=== PATIENT | female | born 1945 | race Caucasian/White ===

== ENCOUNTER 2016-12-16 18:18 | Emergency (ER) | payer OTHER ==
[~2016-12-16] VITALS: Ht 175.3 cm; Wt 73.5 kg
[2016-12-16 18:25] VITALS: BP 197/79
[2016-12-16 19:06] LABS: ABSOLUTE BASOPHIL COUNT 0.1 /CUMM (0.0-0.2); ABSOLUTE EOSINOPHIL COUNT 0.2 /CUMM (0.0-0.7); ABSOLUTE GRANULOCYTE CT 4.6 /CUMM (1.4-6.5); ABSOLUTE LYMPH COUNT 2.5 /CUMM (1.2-3.4); ABSOLUTE MONOCYTE COUNT 0.8 /CUMM (0.10-0.60); BASOPHIL % 0.8 % (0.0-2.0); GRANULOCYTE % 56.5 % (42.2-75.2); HEMATOCRIT 33.8 % (37-47); MEAN CORPUSCULAR HGB 30.9 PG (27.0-31.0); MEAN CORPUSCULAR HGB CONC 32.7 G/DL (33.0-37.0); MEAN CORPUSCULAR VOLUME 94.3 FL (81.0-99.0); MEAN PLATELET VOLUME 8.7 FL (7.4-10.4); PLATELET COUNT 255 /CUMM (130-400); RBC DISTRIBUTION WIDTH 14.1 % (11.5-14.5); RED BLOOD CELL CT 3.58 /CUMM (4.20-5.40); WHITE BLOOD CELL COUNT 8.1 /CUMM (4.8-10.8)
--- NOTE | 2016-12-16 19:17 | CT SCAN REPORT ---
EXAMINATION: CT HEAD WITHOUT CONTRAST CLINICAL INFORMATION: Dizziness following fall. COMPARISON: None. TECHNIQUE: Contiguous axial imaging was performed from the skull base to vertex without intravenous administration of contrast. DLP: 614 mGy-cm FINDINGS: No acute intracranial abnormality. No acute intracranial hemorrhage, mass or mass effect or abnormal extra-axial fluid collections. The density within the dural venous sinuses is within normal limits. The ventricles are normal in size, without hydrocephalus. There are no focal areas of hypoattenuation within a vascular distribution to suggest acute transcortical ischemia. The basilar cisterns are patent. No acute calvarial abnormality is identified. Soft tissues appear unremarkable. The imaged paranasal sinuses and mastoid air cells are well aerated. IMPRESSION: No acute intracranial abnormality.
--- NOTE | 2016-12-16 20:04 | ED MVC/FALL/TRAUMA COMPLAINT ---
History of Present Illness General Chief Complaint: General Adult Stated Complaint: PT WAS SIB BY [facility], DIZZY, FALL Source: patient, old records Exam Limitations: no limitations Vital Signs & Intake/Output Vital Signs & Intake/Output Vital Signs Date Time Temp Pulse Resp B/P B/P Pulse O2 O2 Flow FiO2 Mean Ox Delivery Rate 12/16 1825 98.8 72 18 197/79 99 Room Air ED Intake and Output 12/17 0000 12/16 1200 Intake Total Output Total Balance Patient 162 lb Weight Weight Reported by Patient Measurement Method Allergies Coded Allergies: amoxicillin (From AUGMENTIN) (Severe, ABD PAIN 12/16/16) bee pollen (Severe, ANAPHYLAXIS 12/16/16) clavulanic acid (From AUGMENTIN) (Severe, ABD PAIN 12/16/16) Sulfa (Sulfonamide Antibiotics) (UNKNOWN 12/16/16) benazepril (From LOTENSIN) (UNKNOWN 12/16/16) codeine (UNKNOWN 12/16/16) erythromycin base (From ERYTHROCIN) (UNKNOWN 12/16/16) moxifloxacin (From AVELOX) (UNKNOWN 12/16/16) Reconcile Medications Meclizine HCl 25 MG TABLET 1 TAB PO TIDPRN PRN dizziness Triage Note: 71 YO FEMALE TO TRIAGE FROM URGENT CARE. PER PT SHE FELL 1 WEEK AGO HITTING HER HEAD, STATES SHE WAS FEELING FINE AND NOW SHE IF FEELING "OFF BALANLCE" DENIES PAIN. ALSO STATES SHE WAS BITTEN BY A TICK ON MONDAY. STATES SHE DOESNT REMEMBER IF THE S/S STARTED BEFORE OR AFTER THE TICK BITE. RECIEVED CALL FROM DR MORENO FROM [facility] WHO STATED PT HAD NORMAL EKG (PLACED IN CHART) AND WOULD LIEK PT TO GET A CT SCAN OF HEAD. Triage Nurses Notes Reviewed? yes Onset: Gradual Duration: week(s): (1), intermittent Timing: recent history Severity: mild, moderate Severity Numbers: 3 Injuries/Fall Location: head Loss of Consciousness: no loss of consciousness No Modifying Factors: none Associated Symptoms: denies HPI: 71-year-old female with history of hypertension high cholesterol presents to ER for evaluation after she was seen by urgent care today. She states that she's had intermittent dizziness for the past 1 week. She states approximately 1 month ago she fell hit her head there is no loss of consciousness she did not seek care for the symptoms at that time. She went to an urgent care today after she found a tick on her right knee and was telling about her dizziness and sent them here to the ER for evaluation. She denies headache nausea vomiting arm or leg pain numbness or tingling. No rashes to her skin. His symptoms are not elicited with movement of her head or changes position no lightheadedness chest pain palpitations The patient denies any symptoms at this time (GAGE CARUSO) Past History Travel History Traveled to [place] past 21 day No Medical History Any Pertinent Medical History? 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 No (GAGE CARUSO) Review of Systems Review of Systems Constitutional: Reports: see HPI. All Other Systems: Reviewed and Negative Comments Review of systems: See HPI, All other systems negative. Constitutional, no chills no fever, no malaise no weight loss HEENT: No visual changes no sore throat no congestion, no ear pain Cardiovascular: No chest pain , no palpitation , no orthopnea Skin: no rashes, no change in skin Respiratory: No dyspnea no cough no sputum no hemoptysis GI: No nausea no vomiting, no diarrhea, no bloating/constipation : No dysuria No hematuria, no frequency, no discharge Muscle skeletal: No joint pain, no joint swelling, no back pain, no neck pain, Neurologic: No numbness no confusion, no headache Psych: No stress no depression,. Heme/endocrine: No bruising no bleeding Immunology: No lymphadenopathy (GAGE CARUSO) Physical Exam Physical Exam General Appearance: well developed/nourished, alert, awake Comments: Well-developed well-nourished person in no acute distress HEENT: Normal EENT exam; PERRL, EOMI, no nystagmus. HEAD is atraumatic. moist mucous membranes. Neck: Supple, no lymphadenopathy, normal range of motion Back: Nontender, no CVA tenderness. Full range of motion Cardiovascular: Regular rate and rhythms no murmurs rubs Respiratory: . No respiratory distress. Patient speaking in full complete sentences. Breath sounds clear to auscultation bilaterally: NO W/R/R Extremity: No edema, full range of motion of extremities, normal and equal pulses bilaterally, 5 out of 5 strength noted to bilateral upper and lower extremities Neuro: Alert oriented x3, motor sensory normal, cranial nerves II through XII grossly intact. There were no obvious focal neurologic abnormalities. Skin: No appreciable rash on exposed skin, skin is warm and dry. Psych: Mood and affect is normal, memory and judgment is normal. Core Measures ACS in differential dx? No Severe Sepsis Present: No Septic Shock Present: No (JAIDA MCCORMICK,GAGE) Progress Differential Diagnosis: concussion ich, tick born illness, dehydration, electrolyte abnoramlity, post traumatic vertigo Plan of Care: Orders Procedure Date/time Status LYME TITRE 12/16 1830 Active COMPREHENSIVE METABOLIC PANEL 12/16 1830 Complete CBC WITHOUT DIFFERENTIAL 12/16 1830 Complete Laboratory Tests 12/16/16 1845: Anion Gap 11, Estimated GFR 44 L, BUN/Creatinine Ratio 34.2 H, Glucose 128 H, Calcium 9.5, Total Bilirubin 0.4, AST 30, ALT 32, Alkaline Phosphatase 76, Total Protein 7.2, Albumin 4.5, Globulin 2.7, Albumin/Globulin Ratio 1.7, CBC w Diff NO MAN DIFF REQ, RBC 3.58 L, MCV 94.3, MCH 30.9, RDW 14.1, MPV 8.7, Gran % 56.5 , Lymphocytes % 31.3, Monocytes % 9.4 H, Eosinophils % 2.0, Basophils % 0.8, Absolute Granulocytes 4.6, Absolute Lymphocytes 2.5, Absolute Monocytes 0.8 H, Absolute Eosinophils 0.2, Absolute Basophils 0.1, PUBS MCHC 32.7 L, Lyme Disease Antibody Pending Discussed the patient at length all of her lab results she has denied any symptoms here ambulatory around the emergency room without reproducible symptoms I discussed with the patient at length all of their results. I had an extensive conversation regarding need for close follow up with their primary care physician this week as well as return precautions. I answered all of their questions, they feel comfortable with the plan and follow-up care. I discussed with the patient/family the medications that they will receive. I gave them signs and symptoms that could indicate an adverse reaction. I have advised them to limit their activities until they can see how they respond to the medication. (GAGE CARUSO) Diagnostic Imaging: Viewed by Me: CT Scan. Discussed w/RAD: CT Scan. Radiology Impression: PATIENT: DEBBIE WOMACK PRESENT AGE: 71 PATIENT ACCOUNT NO: [id number] : 43 LOCATION: [facility] ORDERING PHYSICIAN: LAYNE RODGERS DO (TBS) SERVICE DATE: 12/16/16 EXAM TYPE: CAT - CT HEAD WO IV CONTRAST EXAMINATION: CT HEAD WITHOUT CONTRAST CLINICAL INFORMATION: Dizziness following fall. COMPARISON: None. TECHNIQUE: Contiguous axial imaging was performed from the skull base to vertex without intravenous administration of contrast. DLP: 614 mGy-cm FINDINGS: No acute intracranial abnormality. No acute intracranial hemorrhage, mass or mass effect or abnormal extra-axial fluid collections. The density within the dural venous sinuses is within normal limits. The ventricles are normal in size, without hydrocephalus. There are no focal areas of hypoattenuation within a vascular distribution to suggest acute transcortical ischemia. The basilar cisterns are patent. No acute calvarial abnormality is identified. Soft tissues appear unremarkable. The imaged paranasal sinuses and mastoid air cells are well aerated. IMPRESSION: No acute intracranial abnormality. DICTATED BY: DIVYA ADAMS MD DATE/TIME DICTATED:12/16/161909 WOODS SUPERINTENDENT:KRIS DATE/TIME TRANSCRIBED:12/16/161909 CONFIDENTIAL, DO NOT COPY WITHOUT APPROPRIATE AUTHORIZATION. <Electronically signed in Other Vendor System> SIGNED BY: DIVYA ADAMS MD 12/16/161916 (GAGE CARUSO) Departure Departure Time of Disposition: 2012 Disposition: HOME OR SELF CARE Condition: Stable Clinical Impression Primary Impression: Dizziness Referrals: CONTRERAS MINOR MD (PCP/Family) Additional Instructions: Follow-up with your primary care physician this week. Neck was seen if needed for dizziness return to ER anytime sooner with any concerns Departure Forms: Customer Survey General Discharge Information Prescriptions: Current Visit Scripts Meclizine HCl 1 TAB PO TIDPRN PRN dizziness #30 TAB (GAGE CARSUO) PA/PATIENT CARE TECHNICIAN Co-Sign Statement Statement: ED Attending supervision documentation- [] I saw and evaluated the patient. I have also reviewed all the pertinent lab results and diagnostic results. I agree with the findings and the plan of care as documented in the PA's/PATIENT CARE TECHNICIAN's documentation. [X] I have reviewed the ED Record and agree with the PA's/PATIENT CARE TECHNICIAN's documentation. [] Additions or exceptions (if any) to the PAs/PATIENT CARE TECHNICIAN's note and plan are summarized below: [] (CAROL ANN BROWN,MIROSLAVA Jenkins)
[2016-12-16] MEDS ORDERED: MECLIZINE HCL25 MG PO (20:14)
== END 2016-12-16 20:55 ==
LOC: ERH 18:18
PROVIDERS: Emergency Medicine
DX: R42 Dizziness and giddiness (principal)
CPT/HCPCS: 86618